=== PATIENT | male | born 1985 | race Hispanic/Latino ===

== ENCOUNTER 2017-04-10 10:28 | Emergency (ER) | payer SELFPAY ==
[2017-04-10] MEDS ORDERED: IBUPROFEN 600 MG TABLET ONE (11:08)
== END 2017-04-10 11:26 | disposition home or self-care (01) ==
LOC: EDH 10:28
DX: S40.012A Contusion of left shoulder, initial encounter (principal); W18.39XA Other fall on same level, initial encounter; Y93.89 Activity, other specified; Y92.89 Other specified places as the place of occurrence of the external cause; Y99.8 Other external cause status
CPT/HCPCS: 73030